=== PATIENT | male | born 1965 | race Caucasian/White ===

== ENCOUNTER → 2019-01-07 09:05 | Outpatient (CLI) | payer BC ==
[2012-11-15 06:03] VITALS: BMI 29.2
== END | disposition home or self-care (01) ==
LOC: D.CT 01-05 13:00 → D.US 09:05
PROVIDERS: ATTEND Surgery
DX: G62.9 Polyneuropathy, unspecified (principal)

== ENCOUNTER 2019-03-11 08:45 | Outpatient (CLI) | payer BC ==
[~2019-03-11] VITALS: Ht 185.4 cm; Wt 94.3 kg
[~2019-03-11 08:45] MED LIST: LISINOPRIL10 MG PO; PLAVIX75 MG PO
[2019-03-11 09:01] LABS: HEMATOCRIT 41.3 % (42.0-54.0); HEMOGLOBIN 14.8 g/dL (13.5-17.5); MCH 32.2 pg (26.0-34.0); MCHC 35.8 g/dL (31.0-37.0); MEAN PLATELET VOLUME 9.4 fL (7.4-10.4); RBC 4.59 10x6/uL (4.20-6.10); RDW 12.5 % (11.5-14.5); WBC 5.7 10x3/uL (4.8-10.8)
[2019-03-11 09:27] LABS: APTT 27.6 SECONDS (22.8-39.4); INR 1.06 (0.85-1.17); PROTIME 13.3 SECONDS (11.6-15.0)
[2019-03-11] MEDS ORDERED: AMITRIPTYLINE H50 MG PO (11:17)
[2019-03-11] MEDS ORDERED: HYDROCODON-ACE1 EA10 PO (11:17)
[2019-03-11 11:31] VITALS: BP 131/83; Ht 185.4 cm; Wt 94.3 kg
--- NOTE | 2019-03-11 14:10 | NUR ---
PT STATES HAS BEEN HERE SINCE O830 AND HIS STRESS LEVEL IS EXTREMELY HIGH. WISHES TO RESCHEDULE SURGERY IF IT IS GOING TO BE MUCH LONGER. SPOKE WITH DR LAKE WHO STATES THAT HE NEEDS TO BE RESCHEDULED. DR SUAREZ OFFICE WILL RESCHEDULE. IV REMOVED WITH [facility] INTACT. DRESSED AT BEDSIDE. DISCHARGE INSTRUCTIONS GIVEN. VOICED UNDERSTANDING. DC'D HOME.
== END 2019-03-11 14:10 | disposition home or self-care (01) ==
LOC: D.OPS 08:45 → D.PAN 11:00 → EDSTATUS 11:00 → D.OPS 11:45
PROVIDERS: Anesthesiology; ATTEND Surgery
DX: I73.9 Peripheral vascular disease, unspecified (principal)

== ENCOUNTER 2019-04-15 06:12 | Day surgery (SDC) | payer BC ==
[~2019-04-15] VITALS: Ht 185.4 cm; Wt 94.9 kg
[~2019-04-15 06:12] MED LIST changes: +AMITRIPTYLINE H50 MG PO; +HYDROCODON-ACE1 EA10 PO
[2019-04-15 06:41] LABS: HEMOGLOBIN 14.6 g/dL (13.5-17.5); MCHC 35.6 g/dL (31.0-37.0); MCV 89.9 fL (80.0-100.0); MEAN PLATELET VOLUME 9.7 fL (7.4-10.4); RBC 4.56 10x6/uL (4.20-6.10); RDW 12.7 % (11.5-14.5); WBC 5.8 10x3/uL (4.8-10.8)
[2019-04-15 06:44] LABS: INR 1.04 (0.85-1.17); PROTIME 13.1 SECONDS (11.6-15.0)
[2019-04-15] MEDS ORDERED: ZANTAC300 MG PO (07:39)
[2019-04-15 07:57] VITALS: BP 144/92; Ht 185.4 cm; Wt 94.9 kg
--- NOTE | 2019-05-17 14:42 | OP ---
PATIENT NAME: SHEYLA BROWNE MEDICAL RECORD: [id number] :61 LOCATION:D[facility] ADMISSION DATE: SURGEON: MANASA LAKE MD DATE OF OPERATION: 04/15/2019 PREOPERATIVE DIAGNOSES: 1. Right lower extremity ischemia. 2. 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 POSTOPERATIVE DIAGNOSES: 1. Right lower extremity ischemia. 2. 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 PROCEDURES: 1. Pelvic aortogram. 2. Left common femoral arteriogram. 3. Selective right superficial femoral arteriogram. 4. Subselective right popliteal arteriogram. 5. Balloon angioplasties of intrastent stenoses of right superficial femoral artery. 6. SilverHawk atherectomy of right superficial femoral artery stenosis. 7. Placement of 6-Czech sheath in the left common femoral artery. The risks, possible complications, and alternatives to the procedure were explained to the patient. He elects to proceed. This patient has right lower extremity disease. We plan to enter on the left side to intervene on the right. He has undergone previous radiographic study, which has revealed an intrastent stenosis on the right. The patient has claudication. OPERATIVE COURSE: The patient was conveyed to the operating room electively on 04/15/2019. General anesthesia was induced by the anesthesia staff. The patient was positioned supine. Both lower extremities were sterilely prepped and draped. Under ultrasonographic guidance, I percutaneously accessed the left common femoral artery in a retrograde fashion. This was utilizing a micropuncture technique. A microdilator introducer was advanced. The dilator and wire were removed. A J-wire was advanced. Over the J-wire, a 5-Czech sheath was advanced. Through the 5-Czech sheath, a nonselective left common femoral arteriogram was performed with bolus milly runoff. There was no need to intervene on the left side. There was nothing in the left common femoral artery that would prevent us from using an Angio-Seal at the end of the procedure. A 0.035 Glidewire was advanced. Over the 0.035 Glidewire, a pigtail catheter was advanced into the distal aorta. A pelvic aortogram was used with pressure injector. I then advanced the Glidewire. The pigtail catheter was removed. I then cut off a portion of the pigtail catheter, was able to advance it, and was able to get it to hook at the aortic bifurcation. Through the catheter, I advanced a 0.035 Glidewire Advantage. This was advanced over the aortic bifurcation into the right common femoral artery. I then advanced the catheter into the right superficial femoral artery. A selective right superficial femoral arteriogram was performed. This revealed an 80% stenosis of the proximal superficial femoral artery. This was an intrastent stenosis. OPERATIVE REPORT [id number] HOLLIESHEYLA Hernández The Glidewire Advantage was advanced and the catheter was removed. Over the Glidewire Advantage, I advanced a 6-mm angioplasty balloon. Balloon angioplasty was performed of the entire stented area on the right. There was some improvement in some of the stenoses that were not flow limiting. However, there was no improvement in the flow limiting stenosis after we changed out the angioplasty balloon for a crossover catheter. The crossover catheter was a 6-Czech catheter and it was changed out over a wire for the short 5-Czech sheath. I then advanced another angioplasty balloon. This was a higher pressure angioplasty balloon, which was short. It was 6-mm x 4-cm angioplasty balloon, and even at a high pressure, I was unable to eliminate the waist at the area of the stenosis. A Glidewire was advanced. A diagnostic catheter was advanced again. A selective right superficial femoral arteriogram was performed. This did confirm that there was still a high-grade stenosis at the intrastent stenosis. Therefore, as balloon angioplasties were unsuccessful, I felt that atherectomy was indicated. We used the small SilverHawk device. It was advanced over a wire. Utilizing the micro SilverHawk, we performed atherectomies at the site of the intrastent stenosis. I then withdrew the SilverHawk device. Balloon angioplasties were performed at the site. These were 6 mm at 18 atmospheres. Subsequent selective arteriogram of the right superficial femoral artery revealed a residual stenosis of perhaps 20%. This was not flow limiting. In order to confirm that there was not embolic disease from the atherectomy, over a Glidewire, I advanced a catheter into the popliteal artery and a subselective popliteal arteriogram was performed on the right side. This revealed 3-vessel flow to the level of the ankle. I felt that no further intervention was necessary. Through the crossover sheath, a 0.035 Glidewire was advanced. I then withdrew the sheath. Over the 0.035 Glidewire, a #6 Angio-Seal was advanced and then deployed. Hemostasis was immediate. Doppler signal could be heard in the left superficial femoral artery distal to the deployment. A sterile dressing was applied. The patient was then extubated and conveyed to the post-anesthesia care unit, where he was in stable condition. TRANSINT:[id number] Voice Confirmation ID: [id number] DOCUMENT ID: [id number] MANASA LAKE MD at 1442 CC: [id number] DICTATION DATE: 05/16/19 1715 TRANSLATION DIRECTOR: 05/16/191956 [facility] 04/15/19 [id number] [place] [address]
== END 2019-04-15 17:15 | disposition home or self-care (01) ==
LOC: D.OPS 06:12 → D.PAN 08:00 → D.OPS 08:40
PROVIDERS: Anesthesiology; ATTEND Surgery
DX: T82.858A Stenosis of other vascular prosthetic devices, implants and grafts, initial encounter (principal); Y83.9 Surgical procedure, unspecified as the cause of abnormal reaction of the patient, or of later complication, without mention of misadventure at the time of the procedure